=== PATIENT | female | born 1955 | race Caucasian/White ===

== ENCOUNTER → 2024-09-20 13:27 | Outpatient (REF) | payer MEDICARE, SELFPAY | LOC: WDC 13:27 | PROVIDERS: ATTENDING PHYSICIAN Family Medicine | DX: Z12.31 Encounter for screening mammogram for malignant neoplasm of breast (principal); M81.0 Age-related osteoporosis without current pathological fracture | CPT/HCPCS: 77063; 77067; 77080 ==